=== PATIENT | female | born 1995 | race African-American/Black ===

== ENCOUNTER 2020-05-11 10:55 | Outpatient (REF) | payer OTHER, SELFPAY | END 2020-05-11 10:56 | disposition home or self-care (01) | LOC: HO.LAB 10:55 | PROVIDERS: PCP Pediatrics; Visit Provider Internal Medicine | DX: Z20.828 Contact with and (suspected) exposure to other viral communicable diseases (principal) | CPT/HCPCS: C9803; U0003 ==

== ENCOUNTER 2021-02-16 15:45 | Outpatient (REF) | payer OTHER, SELFPAY | END 2021-02-16 15:46 | disposition home or self-care (01) | LOC: HO.LAB 15:45 | PROVIDERS: Visit Provider Internal Medicine | DX: Z20.822 Contact with and (suspected) exposure to COVID-19 (principal) | CPT/HCPCS: C9803; U0003; U0005 ==

== ENCOUNTER 2024-06-02 13:32 | Emergency (ER) | payer OTHER, SELFPAY ==
--- NOTE | ~2024-06-02 | XR_ITS ---
CLINICAL HISTORY: Coughing, wheezing 1 view chest x-ray Comparison: None Findings: No consolidation or effusion. Heart size is normal. No acute fracture. IMPRESSION: 1. No acute findings. This document has been electronically signed by: Meek Philip MD on 06/02/2024 16:31:16
[2024-06-02 15:12] VITALS: BP 134/85; PULSE 119; RESP 20; TEMP 36.6; O2SAT 99; BMI 37.2
--- NOTE | 2024-06-02 15:23 | ED_ITS ---
HPI - General Adult General Chief complaint: Dyspnea Stated complaint: diff breathing Time Seen by Provider: 06/02/24 16:29 Source: patient Mode of arrival: ambulatory Limitations: no limitations History of Present Illness ED Provider: Arron Castillo HPI narrative: 28 yold female with pmh of asthma presents to the ED for SOB with coughing. Patient states no relief with albuterol home inhalers. Patient denies any leg swelling, calf pain, pleurisy, coughing up blood, or shortness of breath on exertion. Related Data Previous Rx's ?Medication ?Instructions ?Recorded benzonatate 200 mg capsule 200 mg PO TID PRN cough 5 days #15 06/02/24 caps prednisone 20 mg tablet 40 mg (2 x 20 mg) PO DAILY 5 days 06/02/24 #10 tabs Allergies Allergy/AdvReac Type Severity Reaction Status Date / Time shellfish derived [shellfish] Allergy Anaphylaxis Verified 06/02/24 15:17 Review of Systems Review of Systems: Coughing, SOB, wheezing Yes all other systems are reviewed and are negative PMFSH Social History Social History Advance Directives: No Advance Directives Information Provided: No Physical Exam ED Vital Signs: Vital Signs - 24 hr 06/02/24 15:12 06/02/24 16:20 06/02/24 16:30 Temperature 97.9 F 98.3 F Pulse Rate 119 H 100 100 Respiratory Rate 20 16 16 Blood Pressure 134/85 120/80 Pulse Oximetry 99 98 Oxygen Delivery Method Room Air Room Air BMI result Body Mass Index 37.2 Const General: cooperative, healthy appearing, comfortable, no acute distress, well developed, alert, awake and Physically active Orientation/consciousness: patient oriented x3 HENMT Head: Yes normal to inspection, Yes No palpable skull fracture present and Yes normocephalic Ears: hearing grossly normal bilaterally, external ears normal, TM's normal bilaterally, TM normal on the right, TM normal on the left, EAC's normal, masto ids normal and no periauricular adenopathy Throat: Yes posterior oropharynx normal, Yes tonsils normal and Yes uvula midline Eyes General: appearance normal, both eyes and all related structures Neck Neck: Yes normal visual inspection, Yes full ROM, Yes no lymphadenopathy, Yes no meningeal signs, Yes trachea midline, Yes supple, No anterior neck swelling and No tender Chest Chest palpation & inspection: normal inspection of the chest and normal palpation of entire chest wall Resp Effort & Inspection: normal respiratory effort and able to speak in complete sentences Auscultation: wheezes expiratory wheezes and throughout Cardio Jugular venous distension: no JVD Heart sounds: S1 normal heart sound present and S2 normal heart sound present GI Inspection: Yes normal to inspection Palpation (GI): Soft to palpation, not firm, nontender, no guarding and not rigid General: Yes no CVA tenderness Back/Spine/Pelvis Back: no CVA tenderness and No back tenderness Skin General skin exam: no rashes or lesions noted, elasticity normal and turgor normal Neuro General: patient oriented x3, gait normal, tone normal, moves all extremities, Normal light touch and pain sensation, no meningeal signs, no focal motor deficits, CN's II-XI intact bilaterally and normal sensation to monofilament Extrem Other: Bilateral lower extremity negative for swelling, pitting edema, calf tenderness General: Yes normal to inspection, Yes full ROM and Yes capillary refill normal Psych Appearance: grossly normal, well kempt and not disheveled Course Course Course Narrative: RME: 28-year-old female for coughing, headache, neck pain, and shortness of breath. Patient states no relief with nebulizers. Physical exam positive for extensive expiratory wheezing. SARs strep chest x-ray ED bronchodilators ordered Medications Administered Discontinued Medications Generic Name Dose Route Start Last Admin Trade Name Freq PRN Reason Stop Dose Admin Albuterol Sulfate 2.5 mg/ 0 mg 06/02/24 16:20 06/02/24 16:27 Albuterol/Ipratropium 3 ml INHALE 06/02/24 16:21 5 dose ONCE ONE Administration Medical Decision Making Medical Decision Making MDM Narrative: 28-year-old female presents to ED for URI symptoms. Patient giving albuterol bronchodilator treatment. X-ray negative pneumonia. Patient is positive for influenza flu. Patient having symptoms since Monday. Patient beyond 48 hours for Tamiflu. Chest x-ray negative for bacterial pneumonia. Patient well- appearing. Patient explained worrisome signs informed to return to the ED. patient feels better after receiving nebulizer treatment. Not suspecting PE, myocardial infarction, myocarditis, CHF, respiratory failure, or any other life- threatening etiology. Patient is having symptoms for more than 48 hours. Does not qualify for Tamiflu Differential Diagnosis Differential Diagnoses: The differential diagnosis associated with the presentation includes (Pneumonia, RSV, COVID influenza) Admission/Observation Consideration of admission/observation: Escalation of care including admission/observation considered Lab Data MDM Lab Attestation statement: I reviewed the patient's lab results. Labs: Lab Results 06/02/24 Range/Units 15:42 Influenza Type A (PCR) POSITIVE A (Negative) Influenza Type B (PCR) NEGATIVE (Negative) RSV RNA Qual (PCR) NEGATIVE (Negative) SARS-CoV-2 RNA (RT-PCR) NEGATIVE (Negative) S. pyogenes GrpA KAMALJIT Negative (Negative) Independent Interpretation I performed an independent interpretation of an: Plain X-Ray Radiology Impression Discussion of test interpretation with radiology: I have reviewed the radiologist's reading. Independent Historian Clinical information obtained from an independent historian. History obtained from or confirmed by: Other (patient) External Record Review External record reviewed: Other (prior visits) Discharge Plan Discharge Clinical Impression: Asthma with exacerbation, Influenza Patient Disposition: Home, Self-Care Instructions: Asthma (ED), Influenza (ED) Additional Instructions: Recommend follow-up with your primary care provider. Return to the ED immediately for any chest pain, shortness of breath, coughing up blood, weakness, dizziness, leg swelling, calf pain, or any other concerning symptoms. Continue using albuterol inhaler as needed. Findings: No consolidation or effusion. Heart size is normal. No acute fracture. IMPRESSION: 1. No acute findings. This document has been electronically signed by: Meek Philip MD on 06/02/2024 16:31:16 Prescriptions: New prednisone 20 mg tablet 40 mg PO DAILY 5 Days Qty: 10 0RF benzonatate 200 mg capsule 200 mg PO TID PRN (Reason: cough) 5 Days Qty: 15 0RF Stand Alone Forms: Work/School Release Interventions: ED Discharge Assessment Last Done: 06/02/24 16:30 Discharge Date/Time: 06/02/24 18:00 Print Language: Uzbek
[2024-06-02 15:54] LABS: IDNOW Serial# 58CA691E; Strep A Nucleic Acid Negative (Negative)
[2024-06-02 16:20] VITALS: PULSE 100; RESP 16; O2SAT 98
[2024-06-02 16:26] LABS: Influenza A PCR POSITIVE (Negative); Influenza B PCR NEGATIVE (Negative); Resp Syncy Virus RNA Qual PCR NEGATIVE (Negative); SARS COV2 PCR INHOUSE NEGATIVE (Negative)
[2024-06-02] MEDS: Albuterol Sulfate 2.5 MG, Albuterol/Iprat 2.5/0.5MG 3 ML 3 ML INHALE (16:27)
[2024-06-02 16:30] VITALS: BP 120/80; PULSE 100; RESP 16; TEMP 36.8; O2SAT 98
== END 2024-06-02 18:00 | disposition home or self-care (01) ==
PROVIDERS: Physician Assistant; Emergency Provider Emergency Medicine Emergency Medical Services
DX: J10.1 Influenza due to other identified influenza virus with other respiratory manifestations (principal); J45.901 Unspecified asthma with (acute) exacerbation; R06.02 Shortness of breath; Z03.818 Encounter for observation for suspected exposure to other biological agents ruled out
CPT/HCPCS: 0241U; 71045; 87651; 94640; 99283

== ENCOUNTER → 2024-06-02 15:20 | Outpatient (BNV) | payer SELFPAY | PROVIDERS: Emergency Provider Emergency Medicine Emergency Medical Services; Visit Provider Nuclear Medicine | DX: R05.9 Cough, unspecified (principal); R06.2 Wheezing | CPT/HCPCS: 71045 ==